=== PATIENT | female | born 1955 ===

== ENCOUNTER → 2022-12-11 | Outpatient (CLI) | payer MEDICARE ==
[2022-12-11 12:44] LABS: Microalb/Creat Ratio UR, Rand 14.679 mg/g (0.000-30.000); Microalbumin, Random Urine 41.1 mg/L (0.000-20.000)
== END | disposition home or self-care (01) ==
LOC: LAB SHORT 09:30 → LAB 09:30
PROVIDERS: Physician Assistant
DX: E11.42 Type 2 diabetes mellitus with diabetic polyneuropathy (principal); E11.59 Type 2 diabetes mellitus with other circulatory complications; E11.69 Type 2 diabetes mellitus with other specified complication
CPT/HCPCS: 82043; 82570

== ENCOUNTER → 2024-05-16 | Outpatient (CLI) | payer OTHER ==
[2024-05-16 14:55] LABS: Microalb/Creat Ratio UR, Rand 16.122 mg/g (0.000-30.000); Microalbumin, Random Urine 15.8 mg/L (0.000-20.000)
== END ==
LOC: LAB 10:47 → LAB SHORT 10:47
PROVIDERS: Physician Assistant
DX: E11.42 Type 2 diabetes mellitus with diabetic polyneuropathy (principal); E11.59 Type 2 diabetes mellitus with other circulatory complications; E11.69 Type 2 diabetes mellitus with other specified complication
CPT/HCPCS: 82043; 82570